=== PATIENT | female | born 1975 | race Caucasian/White ===

== ENCOUNTER 2019-03-28 23:52 | Emergency (ER) | payer OTHER ==
[~2019-03-28] VITALS: Ht 162.6 cm; Wt 58.1 kg
--- NOTE | 2019-03-29 00:05 | NUR ---
at bedside for MSE
--- NOTE | 2019-03-29 00:11 | NUR ---
RT called for breathing tx.,
[2019-03-29] MEDS ORDERED: ALBUTEROL SULFATE 2.5 MG/3 ML NEBU NEB ONE (00:15)
[2019-03-29] MEDS ORDERED: IPRATROPIUM BROMIDE 0.5 MG/2.5 ML NEBU NEB ONE (00:15)
--- NOTE | 2019-03-29 00:18 | NUR ---
RT at bedside for breathing tx.,
[2019-03-29] MEDS ORDERED: ALBUTEROL SULFATE 2.5 MG/3 ML NEBU ONE (00:19)
[2019-03-29] MEDS ORDERED: IPRATROPIUM BROMIDE 0.5 MG/2.5 ML NEBU ONE (00:19)
[2019-03-29] MEDS ORDERED: AZITHROMYCIN 250 MG TABLET ONE (00:23)
[2019-03-29] MEDS ORDERED: AZITHROMYCIN 250 MG TABLET PO ONE (00:30)
--- NOTE | 2019-03-29 00:44 | NUR ---
Pt. reports improved airway after breathing tx. and decreased work of breathing, resting in bed, male group sales coordinator at bedside, NAD
--- NOTE | 2019-03-29 00:54 | NUR ---
Patient discharged to home in stable conditon. Written and verbal after care instructions given. Patient verbalizes understanding of instructions. Pt. d/c w/ prescriptions per MD orders, d/c papers signed, all belongings w/ pt., ID band removed, ambulated off unit accompanied by male demolition specialist, LEONARD
== END 2019-03-29 00:56 | disposition home or self-care (01) ==
LOC: ER 23:59
DX: J06.9 Acute upper respiratory infection, unspecified (principal); F17.200 Nicotine dependence, unspecified, uncomplicated
CPT/HCPCS: A4663; J3590; Q0144